=== PATIENT | male | born 1985 ===

== ENCOUNTER 2020-07-27 06:31 | Emergency (ER) | payer MEDICARE, MEDICAID, SELFPAY | END 2020-07-27 09:18 | disposition left against medical advice (07) | LOC: HO.ED 09:01 | PROVIDERS: Emergency Provider Emergency Medicine | DX: K08.89 Other specified disorders of teeth and supporting structures (principal) ==

== ENCOUNTER 2022-03-05 12:56 | Emergency (ER) | payer OTHER, MEDICARE, MEDICAID, SELFPAY ==
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
[2022-03-05 13:52] VITALS: PULSE 68; RESP 18; TEMP 36.9; O2SAT 99; BMI 38.7
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
[2022-03-05] MEDS: Ibuprofen 600 MG TABLET PO (21:03)
== END 2022-03-05 22:15 | disposition home or self-care (01) ==
PROVIDERS: Emergency Provider Emergency Medicine
DX: S13.4XXA Sprain of ligaments of cervical spine, initial encounter (principal); M54.2 Cervicalgia; V43.52XA Car driver injured in collision with other type car in traffic accident, initial encounter; Y93.9 Activity, unspecified; Y92.410 Unspecified street and highway as the place of occurrence of the external cause; Y99.9 Unspecified external cause status
CPT/HCPCS: 72125; 99283; 99284

== ENCOUNTER 2023-10-15 10:04 | Emergency (ER) | payer MEDICARE, MEDICAID, SELFPAY ==
[2023-10-15 10:40] VITALS: BP 136/101; PULSE 74; RESP 16; TEMP 36.7; O2SAT 98; BMI 38.0
== END 2023-10-15 13:34 | disposition left against medical advice (07) ==
PROVIDERS: Emergency Provider Emergency Medicine
DX: K82.9 Disease of gallbladder, unspecified (principal)
CPT/HCPCS: 99281

== ENCOUNTER 2023-10-16 07:28 | Emergency (ER) | payer MEDICARE, MEDICAID, SELFPAY ==
--- NOTE | ~2023-10-16 | US_ITS ---
EXAMINATION: US ABDOMEN LIMITED CLINICAL INFORMATION: Upper abdominal pain with question of gallstones. COMPARISON: None available. TECHNIQUE: Real-time imaging of the right upper quadrant abdominal viscera. FINDINGS: PANCREAS: The visualized portions of the pancreas are unremarkable but a large portion of the gland is obscured by bowel gas. LIVER: The liver is normal in size. The liver contour is normal. Parenchymal echogenicity is normal. No focal hepatic lesion. There is no intrahepatic biliary duct dilatation seen. GALLBLADDER: The gallbladder is physiologically distended. Multiple mobile gallstones are present. The gallbladder wall is thickened at 7 mm and there are areas of comet tail shadowing consistent with adenomyomatosis. No pericholecystic fluid. Brown's sign is negative. COMMON BILE DUCT: Normal in caliber measuring 0.3 cm in diameter. RIGHT KIDNEY: A benign 1.1 cm mid renal cortical Bosniak class I renal cyst is noted which requires no additional imaging or follow up. No hydronephrosis. No renal calculi or solid focal parenchymal lesions. The kidney measures 11.0 cm in maximum dimension. FREE FLUID: None. US/US abdomen limited IMPRESSION: Cholelithiasis with thick-walled gallbladder and adenomyomatosis
[2023-10-16 07:37] VITALS: BP 137/91; PULSE 77; RESP 19; TEMP 36.6; O2SAT 100; BMI 37.9
[2023-10-16 07:52] LABS: MANUAL DIFF FLAG NO
[2023-10-16 07:58] VITALS: BP 133/83; PULSE 71; RESP 17; TEMP 36.6; O2SAT 96
[2023-10-16 08:03] LABS: Basophils Percent Auto 0.4 % (0-2); Eosinophils Absolute Auto 0.4 X10*3/uL (0.0-0.4); Eosinophils Percent Auto 5.4 % (0-4); Imm Gran Abs Auto 0.04 X10*3/uL (0.00-0.03); Imm Gran Pct Auto 0.6 % (0.0-0.4); Lymphocytes Absolute Auto 2.3 X10*3/uL (1.2-4.9); Lymphocytes Percent Auto 31.6 % (20-40); Mean Corpuscular HGB Conc 34.1 g/dl (31.0-36.0); Mean Corpuscular Hemoglobin 31.9 pg (27.0-33.0); Mean Corpuscular Volume 93.4 fL (80.0-98.0); Mean Platelet Volume 9.2 fL (9.4-12.4); Monocytes Absolute Auto 0.5 X10*3/uL (0.1-1.2); Monocytes Percent Auto 7.5 % (2-11); Neutrophils Absolute Auto 3.9 x10*3/uL (2.0-8.3); Neutrophils Percent Auto 54.5 % (45-73); Platelet Count 296 X10*3/uL (160-400); Red Blood Count 4.39 X10*6/uL (4.60-5.80); Red Cell Distribution Width 12.2 % (11.0-16.0); White Blood Count 7.2 X10*3/uL (4.8-10.8)
[2023-10-16 08:09] LABS: Alanine Aminotransferase 15 U/L (0-40); Alkaline Phosphatase 98 U/L (39-117); Anion Gap 15 (12-20); Aspartate Amino Transferase 13 U/L (5-37); Bilirubin Direct 0.1 mg/dL (0.0-0.5); Bilirubin Total 0.3 mg/dL (0.0-1.0); Blood Urea Nitrogen 11 mg/dL (9-16); Calcium 9.5 mg/dL (8.4-10.2); Carbon Dioxide 25 mmol/L (22-29); Chloride 104 mmol/L (96-108); Estimated Glomerular Filt Rate > 60; Glucose Random 110 mg/dL (60-115); Lipase 27 U/L (8-78); Potassium 3.6 mmol/L (3.3-5.1); Sodium 140 mmol/L (135-145); Total Protein 7.7 g/dL (6.5-8.0)
--- NOTE | 2023-10-16 08:09 | PC.NURSE ---
Pt presents to ED from home, reports upper ABD pain since 5pm yesterday, burning, 01/16. Pt denies vomiting, diarrhea, fevers, cough. Does report recent runny nose. Denies this pain ever happening before. Alert and oriented, breathing even and unlabored, skin warm and dry. Pt resting comfortably in bed, VSS. ABD soft, non-distended. Pt does report alcohol use the day prior to yest but not daily drinker.
--- NOTE | 2023-10-16 08:55 | ED.GENADULT ---
HPI - General Adult General Chief complaint: Abdominal Pain Stated complaint: Upper abd pain Time Seen by Provider: 10/16/23 08:55 History of Present Illness HPI narrative: The patient is a 38-year-old male with no significant past medical history who says that yesterday morning at around 05:30 he woke up with terrible upper abdominal pain that made him feel very restless. He was having trouble keeping still because of his discomfort. He came to the hospital but there was a very long wait and he was not seen. By noon yesterday his symptoms had resolved. He then had another episode of discomfort yesterday evening but this also resolved. When he woke up this morning again he had the same discomfort and came to the hospital. It is not as bad today as it was yesterday. Before yesterday he had never had pain like this before. No fever, sweats, chills. He had nausea earlier but no vomiting. No diarrhea. No urinary symptoms. No surgical history. He has on no medications Related Data Previous Rx's ?Medication ?Instructions ?Recorded ibuprofen 600 mg tablet 600 mg PO Q8H PRN pain #30 tabs 03/05/22 omeprazole 40 mg capsule,delayed 40 mg PO DAILY #30 caps 10/16/23 release Allergies Allergy/AdvReac Type Severity Reaction Status Date / Time No Known Allergies Allergy Verified 10/16/23 07:39 [No Known Allergies*] Review of Systems Review of Systems: Yes all other systems are reviewed and are negative [facility] Social History Social History Smoked in Last 30 Days: Yes Use of substances other than those prescribed or required for medical reasons: No Advance Directives: No Advance Directives Information Provided: No Do you have a plan to hurt others: No Plan Physical Exam ED Vital Signs: Vital Signs - 24 hr 10/16/23 07:37 10/16/23 07:58 10/16/23 11:56 Temperature 98 F 97.9 F 98.4 F Pulse Rate 77 71 82 Respiratory Rate 19 17 16 Blood Pressure 137/91 H 133/83 148/70 H Pulse Oximetry 100 96 99 Oxygen Delivery Method Room Air Room Air Room Air BMI result Body Mass Index 37.9 Const Other: The patient is awake, alert, pleasant, cooperative. He is mildly overweight. His BMI is 37. He does not seem in acute distress. HENMT Other: Face is symmetrical, mucous membranes moist Eyes Other: Pupils are round equal, conjunctivae are clear, extraocular movements intact. Neck Other: No JVD. No neck swelling. Resp Effort & Inspection: normal respiratory effort Auscultation: clear to auscultation bilaterally Cardio Rate: regular rate Rhythm: regular rhythm Heart sounds: S1 normal heart sound present and S2 normal heart sound present GI Other: There is diffuse upper abdominal tenderness. No lower abdominal tenderness Skin Other: Skin is dry and unremarkable Neuro Other: The patient is awake, alert, pleasant, normal demeanor. Normal mental status. Cranial nerves grossly intact. Moves extremities normally. Grossly neurologically intact. Extrem Other: No peripheral edema. Medical Decision Making Medical Decision Making [facility] Narrative: The patient presents with 2 days of intermittent upper abdominal pain. His presentation was most suggestive of either episodes of acute dyspepsia or biliary colic. His labs are unremarkable and clinically he looks well. He was pain-free at the time of my evaluation. Describes having 3 episodes of significant discomfort all of which had subsided spontaneously. An ultrasound of his gallbladder shows multiple mobile stones. Negative sonographic Brown's sign. The patient was feeling well and was eager for discharge. I explained to him that he has gallstones and that he may need to have his gallbladder removed. He will be given instructions for a low-fat and low spicy diet. He will also be prescribed omeprazole 40 mg daily. He should contact the general surgery office for prompt follow up. He should return if worse. Lab Data 10/16/23 07:48 10/16/23 07:48 Labs: Lab Results 10/16/23 10/16/23 Range/Units 07:48 10:21 WBC 7.2 (4.8-10.8) X10*3/uL RBC 4.39 L (4.60-5.80) X10*6/uL Hgb 14.0 (14.0-18.0) g/dl Hct 41.0 L (42.0-52.0) % MCV 93.4 (80.0-98.0) fL MCH 31.9 (27.0-33.0) pg MCHC 34.1 (31.0-36.0) g/dl RDW 12.2 (11.0-16.0) % Plt Count 296 (160-400) X10*3/uL MPV 9.2 L (9.4-12.4) fL Immature Gran % (Auto) 0.6 H (0.0-0.4) % Neut % (Auto) 54.5 (45-73) % Lymph % (Auto) 31.6 (20-40) % [place] % (Auto) 7.5 (2-11) % Eos % (Auto) 5.4 H (0-4) % Baso % (Auto) 0.4 (0-2) % Lymph # (Auto) 2.3 (1.2-4.9) X10*3/uL [place] # (Auto) 0.5 (0.1-1.2) X10*3/uL Eos # (Auto) 0.4 (0.0-0.4) X10*3/uL Baso # (Auto) 0.0 (0.0-0.2) X10*3/uL Abs Immat Gran (auto) 0.04 H (0.00-0.03) X10*3/uL Absolute Neuts (auto) 3.9 (2.0-8.3) x10*3/uL Absolute Nucleated RBC 0.000 (0.0-0.012) X10*3/uL Nucleated RBC % (auto) 0.0 (0.0-0.2) /100WBC Sodium 140 (135-145) mmol/L Potassium 3.6 (3.3-5.1) mmol/L Chloride 104 (96-108) mmol/L Carbon Dioxide 25 (22-29) mmol/L Anion Gap 15 (12-20) BUN 11 (9-16) mg/dL Creatinine 0.89 (0.5-1.4) mg/dL Estim Creat Clear Calc 130.0 Estimated GFR > 60 Random Glucose 110 (60-115) mg/dL Calcium 9.5 (8.4-10.2) mg/dL Total Bilirubin 0.3 (0.0-1.0) mg/dL Direct Bilirubin 0.1 (0.0-0.5) mg/dL AST 13 (5-37) U/L ALT 15 (0-40) U/L Alkaline Phosphatase 98 (39-117) U/L Total Protein 7.7 (6.5-8.0) g/dL Albumin 4.0 (3.5-5.0) g/dL Lipase 27 (8-78) U/L Urine Color Yellow Urine Appearance Clear Urine pH 6.5 (5.0-9.0) Ur Specific [place] 1.010 (1.005-1.025) Urine Protein Negative (Neg-Trace) mg/dL Urine Glucose (UA) Negative (Negative) mg/dL Urine Ketones Negative (Negative) mg/dL Urine Blood Negative (Negative) Urine Nitrite Negative (Negative) Ur Leukocyte Esterase Trace H (Negative) Urine RBC 0-2 (0-2) /HPF Urine WBC 0-5 (0-5) /HPF Ur Squamous Epith Cells 0-2 (0-2) /HPF Urine Bacteria None Seen (None Seen) Hyaline Casts 0-2 (0-2) /LPF Influenza Type A (PCR) NEGATIVE (Negative) Influenza Type B (PCR) NEGATIVE (Negative) RSV RNA Qual (PCR) NEGATIVE (Negative) SARS-CoV-2 RNA (RT-PCR) NEGATIVE (Negative) Discharge Plan Discharge Clinical Impression: Epigastric pain, Biliary colic, Cholelithiasis Patient Disposition: Home, Self-Care Instructions: Biliary Colic (ED), Gallstones (ED) Additional Instructions: Please plan on taking the omeprazole once a day as prescribed. You may take your 1st dose when you picket [employer] the prescription today. Then once a day after that. Your ultrasound today showed that you have gallstones in your gallbladder. I think that the episodes of pain you have had over the last 2 days are probably related to the gallstones. This means that you will likely need to have your gallbladder removed. I have provided you with the name and number of Dr. Edgar Montanez, one of the general surgeons at this hospital. Please call the office today to set up an appointment in the office to discuss your symptoms with him soon. In the meantime you should avoid fatty and spicy foods. Fatty and spicy foods can provoke episodes of pain related to gallstones. Return to the emergency room if you are significantly worse, especially if you develop fever or vomiting. Prescriptions: New omeprazole 40 mg capsule,delayed release(DR/EC) 40 mg PO DAILY Qty: 30 0RF No Action ibuprofen 600 mg tablet 600 mg PO Q8H PRN (Reason: pain) Qty: 30 0RF Referrals: Edgar Montanez MD [Physician] - (Biliary colic, gallstones) Interventions: ED Discharge Assessment Last Done: 10/16/23 11:56 Discharge Date/Time: 10/16/23 11:57 Print Language: Italian
[2023-10-16 09:10] LABS: Influenza A PCR NEGATIVE (Negative); Influenza B PCR NEGATIVE (Negative); Resp Syncy Virus RNA Qual PCR NEGATIVE (Negative); SARS COV2 PCR INHOUSE NEGATIVE (Negative)
[2023-10-16 10:27] LABS: Appearance Urine Clear; Color Urine Yellow; Glucose Urine UA Negative (Negative); Leukocyte Esterase Urine Trace (Negative); Nitrite Urine Negative (Negative); PH 6.5 (5.0-9.0); UMIC TRIGGER UACC YES; Urine Blood Negative (Negative); Urine Ketones Negative (Negative); Urine Protein Negative (Neg-Trace)
[2023-10-16 10:29] LABS: Bacteria Urine None Seen (None Seen); Hyaline Casts Urine 0-2 /LPF (0-2); RBC Urine 0-2 /HPF (0-2); Squamous Epithelial Cell Urine 0-2 /HPF (0-2); WBC Urine 0-5 /HPF (0-5)
[2023-10-16 11:56] VITALS: BP 148/70; PULSE 82; RESP 16; TEMP 36.9; O2SAT 99
== END 2023-10-16 11:57 | disposition home or self-care (01) ==
PROVIDERS: Emergency Provider Emergency Medicine
DX: K80.20 Calculus of gallbladder without cholecystitis without obstruction (principal); R10.13 Epigastric pain; Z79.899 Other long term (current) drug therapy; Z03.818 Encounter for observation for suspected exposure to other biological agents ruled out
CPT/HCPCS: 0241U; 36415; 76705; 80048; 80076; 81001; 83690; 85025; 99284

== ENCOUNTER 2023-11-10 06:53 | Emergency (ER) | payer MEDICARE, MEDICAID, SELFPAY ==
--- NOTE | ~2023-11-10 | US_ITS ---
EXAMINATION: US ABDOMEN LIMITED CLINICAL INFORMATION: Right upper quadrant pain. COMPARISON: 10/16/2023 TECHNIQUE: Real-time imaging of the right upper quadrant abdominal viscera. FINDINGS: PANCREAS: Limited visualization. LIVER: The liver is normal in size. The liver contour is normal. Parenchymal echogenicity is normal. No focal hepatic lesion. There is no intrahepatic biliary duct dilatation seen. GALLBLADDER: Irregular gallbladder wall thickening up to 8 mm with ringdown artifact. Sludge and possible stones in the gallbladder. Negative sonographic Brown's sign. COMMON BILE DUCT: Normal in caliber measuring 0.3 cm in diameter. RIGHT KIDNEY: No hydronephrosis. No renal calculi or focal parenchymal lesions. The kidney measures 11.4 cm in maximum dimension. FREE FLUID: None. US/US abdomen limited IMPRESSION: Adenomyomatosis of the gallbladder. Sludge and possible stones in the gallbladder.
[2023-11-10 07:08] VITALS: BP 150/97; PULSE 81; RESP 18; TEMP 36.7; O2SAT 98; BMI 37.9
[2023-11-10 07:37] LABS: MANUAL DIFF FLAG NO
[2023-11-10 07:45] LABS: Basophils Percent Auto 0.6 % (0-2); Eosinophils Absolute Auto 0.1 X10*3/uL (0.0-0.4); Eosinophils Percent Auto 1.8 % (0-4); Hematocrit 43.4 % (42.0-52.0); Hemoglobin 14.8 g/dl (14.0-18.0); Imm Gran Abs Auto 0.02 X10*3/uL (0.00-0.03); Imm Gran Pct Auto 0.3 % (0.0-0.4); Lymphocytes Absolute Auto 1.6 X10*3/uL (1.2-4.9); Lymphocytes Percent Auto 21.9 % (20-40); Mean Corpuscular HGB Conc 34.1 g/dl (31.0-36.0); Mean Corpuscular Hemoglobin 31.7 pg (27.0-33.0); Mean Corpuscular Volume 92.9 fL (80.0-98.0); Mean Platelet Volume 10.3 fL (9.4-12.4); Monocytes Absolute Auto 0.7 X10*3/uL (0.1-1.2); Monocytes Percent Auto 10.2 % (2-11); Neutrophils Absolute Auto 4.6 x10*3/uL (2.0-8.3); Neutrophils Percent Auto 65.2 % (45-73); Platelet Count 245 X10*3/uL (160-400); Red Blood Count 4.67 X10*6/uL (4.60-5.80); Red Cell Distribution Width 12.4 % (11.0-16.0); White Blood Count 7.1 X10*3/uL (4.8-10.8)
--- NOTE | 2023-11-10 08:39 | MHC.EDTECH ---
Lab draw delayed. Called patient from waiting room, tried again shortly after. No response both times. Patient not in waiting room.
== END 2023-11-10 15:51 | disposition left against medical advice (07) ==
LOC: HO.ED 14:24
PROVIDERS: Emergency Provider Emergency Medicine
DX: R10.12 Left upper quadrant pain (principal); D13.5 Benign neoplasm of extrahepatic bile ducts
CPT/HCPCS: 36415; 76705; 85025; 99202; 99281; 99284

== ENCOUNTER 2023-11-10 13:49 | Outpatient (AMB) | payer MEDICARE, MEDICAID, SELFPAY ==
--- NOTE | 2023-11-10 13:50 | A.OFFVIS_ITS ---
Intake Visit Reasons: Gallbladder Intake Note: Patient here to discuss gallbladder surgery. Was seen at ER in October and this morning with pain on upper abd. [employer] Required: No Accompanied by: Self / Same As Patient Allergies No Known Allergies [No Known Allergies*] Allergy (Verified 11/10/23 13:54) HPI Comments Details: Patient presents with recurring biliary colic. He has had several bouts right epicondylar pain radiating around to his back. He has had ER visit for this with 2-0 ultrasounds demonstrating sludge and cholelithiasis. Patient has some fatty food intolerance. He has never been jaundiced before. Otherwise has regular bowel habits. Patient has no other significant past medical or surgical history. Chart was reviewed and patient evaluated [facility] Medical History (Updated 11/10/23 @ 13:55 by JUNE Winkler) HTN (hypertension) Surgical History (Updated 11/10/23 @ 14:02 by Edgar Montanez MD) H/O right knee surgery Social History (Updated 11/10/23 @ 13:56 by JUNE Winkler) Alcohol intake: never Tobacco use type: Cigarette Cigarettes Per Day: 7 Substance Use Type: Marijuana Physical Exam Chest Other: Chest breath sounds bilaterally, HS 1 in 2 GI Other: Abdomen corpulent, soft, benign Assessment & Plan Assessment & Plan (1) Recurrent biliary colic: Code(s): K80.50 - Calculus of bile duct without cholangitis or cholecystitis without obstruction Category: Surgical Plan Discussion was had regarding the risks, benefits, and alternatives laparoscopic possible open cholecystectomy with the patient which included but not limited to bleeding, infection, recurrence, numbness, pain, scarring, bowel or bile duct injury or leak and the patient wishes to proceed. All questions answered. Arrangements were made for this. Coding Level of Care Code New Pt Level 5 (95585) Diagnoses Recurrent biliary colic K80.50
== END 2023-11-10 14:08 | disposition home or self-care (01) ==
PROVIDERS: Visit Provider Surgery
DX: K80.50 Calculus of bile duct without cholangitis or cholecystitis without obstruction (principal)
CPT/HCPCS: 99204

== ENCOUNTER 2024-03-05 09:16 | Day surgery (SDC) | payer MEDICARE, MEDICAID, SELFPAY ==
--- NOTE | 2024-03-03 15:00 | P.CONAN_ITS ---
Documented by User: Shraddha Benitez NP 03/03/24 15:01 HPI - Anesthesia Eval Consult details Narrative: 39yo M for Cholecystectomy Laparoscopic, possible open PMFSH Active Problems Active Problems: All Active Problems Recurrent biliary colic (Acute) Past Medical History Medical History Dislocation of shoulder HTN (hypertension) Surgical History Surgical History [place] teeth extracted History of surgery on lower extremity Social History Social History Alcohol intake: never Patient Tobacco Use Status: Current everyday Tobacco user Tobacco use type: Cigarette Cigarettes Per Day: 9 Use of substances other than those prescribed or required for medical reasons: Yes Substance Use Type: Marijuana Substance Use Type Other:: last used 03/04 Substance Use Frequency: Daily Are you DNR?: No Advance Directives: No Advance Directives Information Provided: Yes Meds Allergies Allergy/AdvReac Type Severity Reaction Status Date / Time No Known Allergies Allergy Verified 11/10/23 13:54 [No Known Allergies*] Exam Pertinent Lab Results Pertinent Lab Results: Laboratory Tests 10/16/23 11/10/23 07:48 07:29 WBC 7.1 Hgb 14.8 Hct 43.4 Plt Count 245 Sodium 140 Potassium 3.6 Chloride 104 Carbon Dioxide 25 BUN 11 Creatinine 0.89 Assessment and Plan Assessment Anesthesia Assessment: Chart Reviewed Documented by User: Carly Amaral MD 03/05/24 10:14 PMFSH Past Medical History Medical History Dislocation of shoulder HTN (hypertension) Family History Family history of problems with anesthesia: No Surgical History Surgical History [place] teeth extracted History of surgery on lower extremity History of Problems with Anesthesia: No Social History Social History Alcohol intake: never Patient Tobacco Use Status: Current everyday Tobacco user Tobacco use type: Cigarette Cigarettes Per Day: 9 Use of substances other than those prescribed or required for medical reasons: Yes Substance Use Type: Marijuana Substance Use Type Other:: last used 03/04 Substance Use Frequency: Daily Are you DNR?: No Advance Directives: No Advance Directives Information Provided: Yes Meds Allergies Allergy/AdvReac Type Severity Reaction Status Date / Time No Known Allergies Allergy Verified 11/10/23 13:54 [No Known Allergies*] Exam Airway Mallampati Class: II TM Dist: >3cm Heart: rrr Lungs: cta Assessment and Plan Assessment Anesthesia Assessment: Anesthesia Plan Discussed and Smoking Cess. Discussed Final Anesthetic Review Family History of Problems with Anesthesia: No History of Problems with Anesthesia: No NPO: Yes ASA Class: III (per patient daily excessive near continuous use of marihuana) Final Preanesthetic Review: No Changes in Pt Med Stat, Meds/Allgs Chart Reviewed, Consent Obtained/Reviewed and Anes Risks/Benef Reviewed Patient Risk: Intermediate Procedure Risk: Intermediate Anesthetic Plan Anesthetic Plan: GA Disposition: Standard PACU
--- NOTE | 2024-03-04 13:15 | MHC.SHP ---
Pre-Procedural Eval Section A - 24 Hr Update-Section A only Date of Service: 03/05/24 The patient is an INPATIENT: No Changes since office visit: No Cold of Flu in the past 2 weeks, No New Medical Problems, No Changes in Medication and No Patient answered all questions Section B - Complete if H&P > 30 days Chief Complaint: Calculus of bile duct without cholangitis or susana Allergies: Allergies Allergy/AdvReac Type Severity Reaction Status Date / Time No Known Allergies Allergy Verified 11/10/23 13:54 [No Known Allergies*] Review of Systems Sugical H&P ROS: Negative: Constitution, Cardiovascular, Respiratory, Neurological, Psychiatric, Hem-Onc, Allergic/Immunologic, Gastrointestinal, Genitourinary, Musculoskeletal, Integumentary, Endocrine and Eyes/Ears/Nose/Throat Exam Surgical H&P Exam: Normal: HEENT, Normal: Heart, Normal: Lungs, Normal: Extremities, Normal: Abdomen, Normal: Skin and Normal: Neurological Plan I have reviewed the history and physical and performed a pertinent physical examination on my patient. No changes have occurred unless specified. Time Spent With Patient Time: Total time managing care of this patient today ____ minutes.
[2024-03-05] VITALS (7 sets, daily range): BP systolic 143–171; BP diastolic 83–109; PULSE 66–96; RESP 12–16; TEMP 36.1–36.3; O2SAT 96–98; BMI 38.3
[2024-03-05] MEDS: Lactated Ringers 1,000 ML 100 ML IVCONT (09:50)
--- NOTE | 2024-03-05 10:49 | W.PM.OPN ---
Operative Note Operative Note Date of Service: 03/05/24 Narrative: Preoperative diagnosis: [] Symptomatic gallbladder Postop diagnosis: [] The same Procedure [] laparoscopic cholecystectomy Surgeon: [] Tarik Track Inspecting Supervisor: [] Zahra Type of Anesthesia: [] General Indication for surgery: [] Gallbladder with significant omental adhesions to it. Moderately intrahepatic gallbladder. Findings: [] Patient brought to the operating room, placed on operative table supine position, after an adequate level of general anesthesia was induced, the patient's abdomen was prepped and draped in usual sterile fashion. Using a supraumbilical curvilinear incision, Mane technique was used to insufflate abdominal cavity to 15 mm of CO2. Upper midline and right subcostal ports were placed under direct laparoscopic view, and the patient placed in reverse Trendelenburg position, and tilted to the left. Findings were as noted above. Gallbladder was grasped using laparoscopic graspers and retracted superiorly and laterally. Extends omental adhesions were swept off the gallbladder and the hilum was approached. Cystic artery and cystic duct were each identified, circumferentially skeletonized, traced directly into the gallbladder, and critical view obtained. Each was clipped proximally x2, distally x1, and transected. The gallbladder which was moderately intrahepatic was then cauterized from the gallbladder fossa using Bovie. Specimen placed in an Endo-Catch bag, a retrieved through the umbilical port. Abdominal cavity was copiously irrigated and secured hemostasis. All ports removed under direct laparoscopic view. Wounds were closed in the following manner; umbilical wound is fascia reapproximated using interrupted 0 Vicryl sutures. Skin wounds were closed using subcuticular 4-0 Vicryl sutures followed by Steri-Strips and sterile dressings. Wounds were infiltrated 0.5% Marcaine at completion. Sponge, needle, and instrument counts reported correct. Patient tolerated the procedure well and emerged from anesthesia stable condition. EBL minimal
== END 2024-03-05 12:27 | disposition home or self-care (01) ==
PROVIDERS: Visit Provider Surgery
PROC: 0FT44ZZ Resection of Gallbladder, Percutaneous Endoscopic Approach (ICD-10-PCS; CPT 47562; principal; 2024-03-05 10:30)
DX: K80.12 Calculus of gallbladder with acute and chronic cholecystitis without obstruction (principal); K82.8 Other specified diseases of gallbladder; K66.0 Peritoneal adhesions (postprocedural) (postinfection); Q44.1 Other congenital malformations of gallbladder; I10 Essential (primary) hypertension; F17.210 Nicotine dependence, cigarettes, uncomplicated; Z98.890 Other specified postprocedural states
CPT/HCPCS: 47562; 88304; J0690; J1100; J2250; J2405; J2704; J2795; J3010

== ENCOUNTER → 2024-03-05 09:16 | Outpatient (BNV) | payer MEDICARE, MEDICAID, SELFPAY | PROVIDERS: Visit Provider Surgery | DX: K80.50 Calculus of bile duct without cholangitis or cholecystitis without obstruction (principal) | CPT/HCPCS: 47562 ==

== ENCOUNTER 2024-04-07 09:34 | Outpatient (AMB) | payer MEDICARE, MEDICAID, SELFPAY ==
--- NOTE | 2024-04-07 09:41 | MHC.OFFVIS ---
Intake Visit Reasons: s/p lap susana Intake Note: Patient here s/p lap susana on 03-05-2024. Reports incision healing well. Patient c/o: pain, tenderness. 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 He has several weeks status post laparoscopic cholecystectomy. He is tolerating a diet. Having regular bowel habits. He has occasional incisional discomfort but otherwise doing well. [facility] Medical History Dislocation of shoulder HTN (hypertension) Surgical History (Updated 04/07/24 @ 09:43 by Edgar Montanez MD) Hx laparoscopic cholecystectomy (03/05/24) [place] teeth extracted History of surgery on lower extremity Social History Alcohol intake: never Patient Tobacco Use Status: Current everyday Tobacco user Tobacco use type: Cigarette Cigarettes Per Day: 9 Substance Use Type: Marijuana Physical Exam Eyes Other: Anicteric GI Other: Abdomen mildly corpulent, soft, benign. All wounds clean dry and intact healing well Assessment & Plan Assessment & Plan (1) Postop check: Code(s): Z09 - Encounter for follow-up examination after completed treatment for conditions other than malignant neoplasm Category: Surgical Plan Patient should avoid strenuous activities for next few weeks time and will otherwise follow-up p.r.n.. All questions answered. Coding Level of Care Code Global (78755) Diagnoses Postop check Z09
== END 2024-04-07 10:16 | disposition home or self-care (01) ==
LOC: HO.HGS 09:34
PROVIDERS: Visit Provider Surgery
DX: Z09 Encounter for follow-up examination after completed treatment for conditions other than malignant neoplasm (principal)
CPT/HCPCS: 99024

== ENCOUNTER → 2024-04-07 09:34 | Outpatient (BNVA) | payer MEDICARE, MEDICAID, SELFPAY | PROVIDERS: Visit Provider Surgery | DX: Z09 Encounter for follow-up examination after completed treatment for conditions other than malignant neoplasm (principal); Z98.890 Other specified postprocedural states | CPT/HCPCS: 99212 ==